=== PATIENT | female | born 1945 | race Caucasian/White ===

== ENCOUNTER 2021-01-31 08:39 | Outpatient (CLI) | payer MEDICARE, OTHER, SELFPAY ==
--- NOTE | 2021-01-31 08:45 | FL_ITS ---
WS: [id number] ESOPHAGRAM TECHNIQUE: Double contrast examination was performed with thin and thick barium. Upright and TEIXEIRA imag es were obtained. CLINICAL INFORMATION: PARALYSIS OF VOCAL CORDS AND LARYNX, DYSPHAGIA, OROPHARYNGEA COMPARISON: None. FINDINGS: Swallowing: Normal swallowing mechanism. Small amount of aspiration with the initial thick barium swa llowing. This elicited a cough reflex. No difficulties with the thin barium and no additional episode s of aspiration Esophagus: Mild esophageal dysmotility. No stricture. Moderate esophageal hiatal hernia. Gastroesophageal reflux: No reflux. Fluoroscopy time: 2.0 minutes. FL/FL barium swallow [id number] IMPRESSION: 1. Small amount of isolated aspiration is visualized with the initial thick ba rium which resulted in a cough reflex. No additional episodes of aspiration inc luding no aspiration with thin barium. 2. Moderate esophageal hiatal hernia. 3. No reflux. 4. Mild esophageal dysmotility.
--- NOTE | 2021-01-31 08:45 | CT_ITS ---
WS: [id number] CT NECK TECHNIQUE: Noncontrast CT of the neck with coronal and sagittal reformatted images. CLINICAL INFORMATION: PARALYSIS OF VOCAL CORDS AND LARYNX, DYSPHAGIA, OROPHARYNGEA COMPARISON: None. DLP: 1070.[address] scans at [facility] use at least one of these dose optimization techniques: automated e xposure control; mA and/or kV adjustment per patient size (includes targeted exams where dose is matc hed to clinical indication); or iterative reconstruction. FINDINGS: Medial deviation of the left true vocal cord with rotation of the arytenoid and ballooning of the lef t piriform sinus consistent with left vocal cord paralysis. No evidence of supraglottic or glottic ma ss. Normal vallecula and right piriform sinus. Free edge epiglottis is normal. Normal subglottic airw ay. Small right thyroid nodules largest measuring 8 mm. Lung apices are well aerated. Ethmoid air cells well aerated. Paranasal sinuses are well aerated. Nor mal parotid glands. Partially visualized intracranial contents are normal. Dental artifact degrades s ome images at the tongue base. No cervical lymphadenopathy. Straightening of the normal cervical lord osis. Mild spondylitic changes cervical spine. CT/CT neck wo con [id number] IMPRESSION: 1. Left vocal cord paralysis. No evidence of supraglottic or glottic mass. 2. No cervical lymphadenopathy. 3. Salivary glands are normal. 4. Small thyroid nodules right greater than left. This can be followed up with ultrasound.
== END 2021-01-31 08:40 | disposition home or self-care (01) ==
PROVIDERS: PCP Family Medicine; Visit Provider Otolaryngology
DX: J38.01 Paralysis of vocal cords and larynx, unilateral (principal); R13.12 Dysphagia, oropharyngeal phase; E04.2 Nontoxic multinodular goiter; K44.9 Diaphragmatic hernia without obstruction or gangrene
CPT/HCPCS: 70490; 74220

== ENCOUNTER → 2022-06-19 09:59 | Outpatient (BNVA) | payer MEDICARE, OTHER, SELFPAY | PROVIDERS: PCP Family Medicine; Visit Provider Family Medicine | DX: M19.011 Primary osteoarthritis, right shoulder (principal) | CPT/HCPCS: 73030 ==

== ENCOUNTER 2022-08-28 08:27 | Outpatient (CLI) | payer MEDICARE, OTHER, SELFPAY ==
--- NOTE | 2022-08-28 08:35 | CT_ITS ---
WS: [id number] CT NECK TECHNIQUE: Noncontrast CT of the neck with coronal and sagittal reformatted images. CLINICAL INFORMATION: NONTOXIC MULTINODULAR GOITER, PARALYSIS OF VOCAL CORDS AND L COMPARISON: CT neck January 31, 2021 DLP: 207.[address] scans at [facility] use at least one of these dose optimization techniques: automated e xposure control; mA and/or kV adjustment per patient size (includes targeted exams where dose is matc hed to clinical indication); or iterative reconstruction. FINDINGS: Multinodular thyroid RIGHT greater than LEFT. This is similar in appearance to January 31, 2021 and not significantly changed. No significant mass effect on the trachea. Mastoid air cells well aerated. Paranasal sinuses well aerated. Normal posterior nasopharynx. Normal parotid glands. Normal submandibular glands. No cervical lymphadenopathy. Lung apices are well aerate d. Visualized posterior fossa appears normal. Tongue base appears normal. Normal parapharyngeal fat. No evidence of supraglottic or glottic mass. Subglottic airway is patent. Medial deviation of the LEFT v ocal cord has improved today. Relatively symmetric appearance of the vocal cords and vocal folds toda y. Normal piriform sinuses. Mild spondylitic changes cervical spine. CT/CT neck wo con [id number] IMPRESSION: 1. Multinodular thyroid is similar in appearance compared to previous. More nu merous nodules on the RIGHT. No significant mass effect on the trachea. 2. Normal salivary glands. 3. No cervical lymphadenopathy. 4. No evidence of supraglottic or glottic mass. 5. Previously described LEFT vocal cord paralysis. LEFT vocal cord has a more normal symmetric appearance today.
== END 2022-08-28 08:28 | disposition home or self-care (01) ==
LOC: RAD 08:31
PROVIDERS: PCP Family Medicine; Visit Provider Specialist
DX: E04.2 Nontoxic multinodular goiter (principal); J38.00 Paralysis of vocal cords and larynx, unspecified
CPT/HCPCS: 70490

== ENCOUNTER → 2022-09-05 10:00 | Outpatient (BNVA) | payer MEDICARE, OTHER, SELFPAY | PROVIDERS: PCP Family Medicine; Visit Provider Family Medicine | DX: E04.1 Nontoxic single thyroid nodule (principal); E78.2 Mixed hyperlipidemia; R73.03 Prediabetes | CPT/HCPCS: 80053; 80061; 83036; 84439; 84443; 84481 ==

== ENCOUNTER → 2023-01-08 08:54 | Outpatient (BNVA) | payer MEDICARE, OTHER, SELFPAY | PROVIDERS: PCP Family Medicine; Visit Provider Family Medicine | DX: E11.9 Type 2 diabetes mellitus without complications (principal) | CPT/HCPCS: 80053; 83036 ==

== ENCOUNTER → 2023-01-14 10:36 | Outpatient (BNVA) | payer MEDICARE, OTHER, SELFPAY | PROVIDERS: PCP Family Medicine; Visit Provider Family Medicine | DX: E11.9 Type 2 diabetes mellitus without complications (principal); R10.9 Unspecified abdominal pain; K59.00 Constipation, unspecified | CPT/HCPCS: 74018; 81000; 87086 ==

== ENCOUNTER → 2023-01-23 14:09 | Outpatient (BNVA) | payer MEDICARE, OTHER, SELFPAY | PROVIDERS: PCP Family Medicine; Visit Provider Nurse Practitioner Family | DX: L57.0 Actinic keratosis (principal); L82.1 Other seborrheic keratosis; D22.5 Melanocytic nevi of trunk; L57.8 Other skin changes due to chronic exposure to nonionizing radiation | CPT/HCPCS: 17004; 99213 ==

== ENCOUNTER → 2023-07-15 09:32 | Outpatient (BNVA) | payer MEDICARE, OTHER, SELFPAY | PROVIDERS: PCP Family Medicine; Visit Provider Family Medicine | DX: E11.9 Type 2 diabetes mellitus without complications (principal) | CPT/HCPCS: 80048; 83036 ==

== ENCOUNTER → 2023-12-24 09:34 | Outpatient (BNVA) | payer MEDICARE, OTHER, SELFPAY | PROVIDERS: PCP Family Medicine; Visit Provider Family Medicine | DX: E11.9 Type 2 diabetes mellitus without complications (principal); E78.2 Mixed hyperlipidemia | CPT/HCPCS: 80053; 80061; 83036 ==

== ENCOUNTER → 2024-06-24 09:41 | Outpatient (BNVA) | payer OTHER, MEDICARE, SELFPAY | PROVIDERS: PCP Family Medicine; Visit Provider Family Medicine | DX: E11.9 Type 2 diabetes mellitus without complications (principal); J44.9 Chronic obstructive pulmonary disease, unspecified | CPT/HCPCS: 80048; 83036; 83880; 85025 ==

== ENCOUNTER 2024-07-28 11:28 | Outpatient (CLI) | payer OTHER, MEDICARE, SELFPAY ==
--- NOTE | 2024-07-28 12:00 | USCV_ITS ---
Jena Villa Age: 78 Gender: F : 1945 Exam Date: 07/28/2024 12:01 Ordering Phys: Piedad Crowley MD Technologist: ELIJAH [place] [facility] [place]: HTN BP: 149 / 85 HR: 67 Rhythm: Sinus Technical Quality: Adequate MEASUREMENTS (Male / Female) Normal Values 2D ECHO LV Diastolic Diameter PLAX 4.6 cm 4.2 - 5.9 / 3.9 - 5.3 cm IVS Diastolic Thickness 0.8 cm 0.6 - 1.0 / 0.6 - 0.9 cm IVS Systolic Thickness 1.3 cm LVPW Diastolic Thickness 1.1 cm 0.6 - 1.0 / 0.6 - 0.9 cm LVPW Systolic Thickness 1.2 cm LVOT Diameter 1.7 cm LV Ejection Fraction 2D Teich 63.9 % LV Ejection Fraction MOD 4C 63.9 % LV Ejection Fraction MOD 2C 66.9 % LV Ejection Fraction 2C AL 66.5 % LA Diameter 3.1 cm RA Systolic Volume 4C AL 9.6 ml RA Systolic Volume 4C MOD 9.5 ml LA Sys Volume AL 28.6 cm cubed LA Sys Volume Index AL 14.3 cm cubed/m squared Aorta at Sinotubular Diameter 2.1 cm IVC Diameter 1.7 cm M-MODE LA Ao Ratio MM 1.9 AV Cusp Separation MM 1.2 cm DOPPLER AV Peak Velocity 131.0 cm/s LVOT Peak Velocity 83.0 cm/s AV Area Cont Eq vti 1.6 cm squared AV Area Cont Eq pk 1.5 cm squared MV Peak Velocity 95.0 cm/s MV Area PHT 4.1 cm squared Mitral E to A Ratio 0.8 TR Peak Velocity 186.0 cm/s TR Peak Gradient 13.8 mmHg TV Peak E Velocity 52.0 cm/s PV Peak Velocity 101.0 cm/s FINDINGS Left Ventricle Normal left ventricular size and systolic function, EF 66%.. No regional wall motion abnormalities. Right Ventricle Normal right ventricular size and systolic function. Right Atrium The right atrium is normal in size. Left Atrium Normal left atrial size. Mitral Valve Mild mitral valve regurgitation. Aortic Valve Trace aortic valve regurgitation. Thickened aortic valve. Tricuspid Valve No gross abnormalities noted Pulmonic Valve Trace pulmonary valve regurgitation. Pericardium Normal pericardium without effusion. Aorta Normal aortic annulus size. IVC Normal inferior vena cava. CONCLUSIONS Normal left ventricular size and systolic function, EF 66%.. No regional wall motion abnormalities. Normal cardiac chamber sizes. Mild mitral valve regurgitation. Trace aortic valve regurgitation. Thickened aortic valve. Trace pulmonary valve regurgitation. There is no pericardial effusion. There are no intracardiac masses. Normal right atrial size. No similar previous studies are available for comparison Dr Guille Combs MD FACC (Electronically Signed) Final Date: 30 July 2024 13:33 S
== END 2024-07-28 11:29 | disposition home or self-care (01) ==
PROVIDERS: PCP Family Medicine; Visit Provider Family Medicine
DX: R60.0 Localized edema (principal); I10 Essential (primary) hypertension; I34.0 Nonrheumatic mitral (valve) insufficiency; I35.8 Other nonrheumatic aortic valve disorders
CPT/HCPCS: 93306

== ENCOUNTER → 2024-10-20 09:08 | Outpatient (BNVA) | payer MEDICARE, OTHER, SELFPAY | PROVIDERS: PCP Family Medicine; Visit Provider Nurse Practitioner Family | DX: D22.4 Melanocytic nevi of scalp and neck (principal); L57.8 Other skin changes due to chronic exposure to nonionizing radiation; L72.0 Epidermal cyst; L82.0 Inflamed seborrheic keratosis; Z78.9 Other specified health status; R20.8 Other disturbances of skin sensation; L53.8 Other specified erythematous conditions; L29.89 Other pruritus; L57.0 Actinic keratosis | CPT/HCPCS: 17000; 17110; 99213 ==

== ENCOUNTER → 2024-12-02 09:32 | Outpatient (BNVA) | payer MEDICARE, OTHER, SELFPAY | PROVIDERS: PCP Family Medicine; Visit Provider Family Medicine | DX: I10 Essential (primary) hypertension (principal); E11.9 Type 2 diabetes mellitus without complications; E78.2 Mixed hyperlipidemia; R53.83 Other fatigue | CPT/HCPCS: 80048; 80061; 82607; 83036 ==